=== PATIENT | female | born 1975 | race Caucasian/White ===

== ENCOUNTER 2022-08-28 19:04 | Emergency (ER) | payer OTHER, BC ==
[2022-08-28] MEDS ORDERED: Ketorolac Tromethamine 60 MG/2 ML VIAL ONE (19:34)
[2022-08-28] MEDS ORDERED: Boostrix 0.5 ML (Tdap) VIAL (>/=7 yrs of age) ONE (19:34)
[2022-08-28] MEDS ORDERED: Clindamycin 150 MG CAP ONE (20:31)
== END 2022-08-28 20:35 | disposition home or self-care (01) ==
LOC: BURERS 19:04
DX: S61.253A Open bite of left middle finger without damage to nail, initial encounter (principal); Z23 Encounter for immunization; W54.0XXA Bitten by dog, initial encounter
CPT/HCPCS: 90471; 90715; 96372; J1885